=== PATIENT | male | born 2005 | race Two or more races ===

== ENCOUNTER 2024-07-30 09:10 | Emergency (ER) | payer OTHER ==
[~2024-07-30] VITALS: Ht 180.3 cm; Wt 79.4 kg
== END 2024-07-30 13:07 | disposition home or self-care (01) ==
LOC: EMR PED 09:43
DX: S59.801A Other specified injuries of right elbow, initial encounter (principal); W10.0XXA Fall (on)(from) escalator, initial encounter; Y93.89 Activity, other specified; Y92.018 Other place in single-family (private) house as the place of occurrence of the external cause